=== PATIENT | male | born 1975 ===

== ENCOUNTER 2019-04-28 14:17 | Emergency (ER) | payer OTHER ==
[2019-04-28 15:49] VITALS: BP 122/83
--- NOTE | 2019-04-28 18:34 | UC ---
Skin Complaint HPI - HPI Summary HPI Summary: 4 DAYS AGO PATIENT WAS WORKING IN HIS [place]AR[place] WHEN A SINGLE PANE WINDOW THAT WAS LEANING AGAINST THE WALL FELL AND LACERATED HIS RIGHT CALF. DID NOT SEEK MEDICAL ATTENTION AT THAT TIME AND NOW HE THINKS IT IS INFECTED. HE HAS REDNESS , SWELLING AND INCREASED PAIN. NO FEVER. HE IS A DIABETIC. STATES HE IS UP-TO -DATE TETANUS IN THE LAST 5 YEARS. - History of Current Complaint Chief Complaint: UCLowerExtremity Time Seen by Provider: 04/28/19 16:09 Stated Complaint: LEG INJURY Hx Obtained From: Patient Onset/Duration: Sudden Onset, Lasting Days, Still Present Timing: Constant Onset Severity: Moderate Current Severity: Moderate Pain Intensity: 4 Pain Scale Used: 0-10 Numeric Character: Swelling, Pain, Redness Aggravating Factor(s): Touch Alleviating Factor(s): Nothing Associated Signs & Symptoms: Positive: Drainage, Tenderness Related History: Trauma - Allergy/Home Medications Allergies/Adverse Reactions: Allergies Allergy/AdvReac Type Severity Reaction Status Date / Time No Known Allergies Allergy Verified 04/28/19 15:49 Home Medications: Home Medications Glimepiride (NF) 2 mg PO DAILY 04/28/19 [History Confirmed 04/28/19] metFORMIN* [Glucophage 500 MG TAB *] 500 mg PO BID 04/28/19 [History Confirmed 04/28/19] PMH/Surg Hx/FS Hx/Imm Hx Endocrine History: Diabetes Respiratory History: Asthma - Surgical History Surgical History: Yes Surgery Procedure, Year, and Place: hydrocele; R testicle; L knee; L wrist; scheduled for R ear surgery - Family History Known Family History: Positive: Non-Contributory - Social History Alcohol Use: Daily Alcohol Amount: 2 beers a day Substance Use Type: None Smoking Status (MU): Heavy Every Day Tobacco Smoker Review of Systems All Other Systems Reviewed And Are Negative: Yes Constitutional: Positive: Negative Skin: Positive: Other - INFECTED ULCER RIGHT CALF Respiratory: Positive: Negative Cardiovascular: Positive: Negative Gastrointestinal: Positive: Negative Musculoskeletal: Positive: Edema Physical Exam Triage Information Reviewed: Yes Appearance: Well-Appearing, No Pain Distress, Well-Nourished Vital Signs: Initial Vital Signs Temp 97.5 F 04/28/19 15:43 Pulse 80 04/28/19 15:43 Resp 14 04/28/19 15:43 BP 122/83 04/28/19 15:43 Pulse Ox 99 04/28/19 15:43 Vital Signs Reviewed: Yes Eyes: Positive: Conjunctiva Clear ENT: Positive: Hearing grossly normal Neck: Positive: Supple Respiratory: Positive: No respiratory distress, No accessory muscle use Cardiovascular: Positive: Pulses Normal Abdomen Description: Positive: Soft Musculoskeletal: Positive: ROM Intact, Edema @ - RIGHT LOWER LEG Neurological: Positive: Alert Psychological: Positive: Age Appropriate Behavior Skin: Positive: Other - 3CM X 1CM OPEN ULCERATION WITH SOME NECROTIC TISSUE AND 12CM SURROUNDING ERYTHEMA. TENDER Course/Dx - Course Course Of Treatment: WOUND CLEANSED AND DRESSED BY RN. WILL COVER INFECTION WITH BACTRIM. IBUPROFEN NEEDED FOR DISCOMFORT AND HYDROCODONE FOR BREAKTHROUGH. PATIENT WILL LIKELY NEED WOUND CARE. CONTACT INFORMATION PROVIDED. ADVISED TO CALL TOMORROW FIRST THING AND HAVE WOUND RECHECKED IN 2 OR 3 DAYS. - Diagnoses Provider Diagnosis: Infection, wound status post trauma Discharge - Sign-Out/Discharge Documenting (check all that apply): Patient Departure All imaging exams completed and their final reports reviewed: No Studies - Discharge Plan Condition: Stable Disposition: HOME Prescriptions: HYDROcodone/ACETAMIN 5-325 MG* [[place] 5-325 TAB*] 1 tab PO Q6H PRN #20 tab MDD 4 PRN Reason: Pain Sulfamethox/Trimethoprim DS* [Bactrim DS 800/160 TAB*] 1 tab PO BID #20 tab Patient Education Materials: Cellulitis (ED), Acute Wound Care (ED) Referrals: Renata Saini PA [Primary Care Provider] - 2 Days Additional Instructions: YOUR WOUND HAS BECOME INFECTED. WARM/HOT COMPRESSES/SOAKS AT LEAST 4 TIMES DAILY CHANGE BANDAGE DAILY AND NEEDED IF BECOMES SOILED OR WET RECOMMEND WOUND RECHECK IN 2-3 DAYS WITH WOUND CARE OR YOUR PCP. GO TO THE ER WITHOUT FAIL IF YOU DEVELOP CONTINUED SPREADING REDNESS OF THE SKIN , PURULENT DRAINAGE, FEVER, INCREASED PAIN OR ANY OTHER CONCERNING SYMPTOMS. CALL FIRST THING IN THE MORNING TOMORROW: [facility] [phone] - Billing Disposition and Condition Condition: STABLE Disposition: Home
[2019-04-28] MEDS ORDERED: Sulfamethox/Trimethoprim DS 800/160* TAB PO ONE (18:52)
[2019-04-28] MEDS ORDERED: HYDROcodone/ACETAMIN 5-325 MG* 1 TAB PO ONE (18:52)
== END 2019-04-28 17:38 | disposition home or self-care (01) ==
LOC: UCEAST 14:17
DX: S81.811A Laceration without foreign body, right lower leg, initial encounter (principal); W25.XXXA Contact with sharp glass, initial encounter; Y92.015 Private garage of single-family (private) house as the place of occurrence of the external cause; B99.9 Unspecified infectious disease; F17.210 Nicotine dependence, cigarettes, uncomplicated
CPT/HCPCS: 99202; A9270-GY; G0463

== ENCOUNTER 2019-11-19 14:50 | Emergency (ER) | payer OTHER ==
[2019-11-19 15:07] VITALS: BP 121/90
--- NOTE | 2019-11-19 15:37 | UC ---
Dental HPI - HPI Summary HPI Summary: 44 yo male presents with dental pain. He tells me that he has a broken left lower tooth for many years. Over the last 3-4 days has had increased pain and swelling to the area. He has been taking ibuprofen with little relief. He was scheduled to see his dentist today, but dentist cancelled due to illness and rescheduled for 11/26/19. Pt has been eating, drinking, and tolerating po well. Denies fever, chills - History of Current Complaint Chief Complaint: UCDentalProblem Stated Complaint: DENTAL Time Seen by Provider: 11/19/19 15:37 Hx Obtained From: Patient Onset/Duration: Gradual Onset Severity: Moderate Pain Intensity: 6 Pain Scale Used: 0-10 Numeric - Allergies/Home Medications Allergies/Adverse Reactions: Allergies Allergy/AdvReac Type Severity Reaction Status Date / Time No Known Allergies Allergy Verified 11/19/19 14:59 Home Medications: Home Medications Ambesol Topical* PRN 11/19/19 [History] Ibuprofen TAB* [Advil TAB*] 800 mg PO Q6H PRN 11/19/19 [History Confirmed ] PMH/Surg Hx/FS Hx/Imm Hx Endocrine History: Diabetes - Surgical History Surgical History: Yes Surgery Procedure, Year, and Place: hydrocele; R testicle; L knee; L wrist; right ear surgery - Family History Known Family History: Positive: Non-Contributory - Social History Lives: With Family Alcohol Use: Occasionally Alcohol Amount: 2 beers a day Substance Use Type: None Smoking Status (MU): Current Every Day Smoker Type: Cigarettes Amount Used/How Often: 1 ppd Review of Systems All Other Systems Reviewed And Are Negative: No Constitutional: Positive: Negative Skin: Positive: Negative Eyes: Positive: Negative ENT: Positive: Dental Pain Respiratory: Positive: Negative Cardiovascular: Positive: Negative Neurovascular: Positive: Negative Neurological: Positive: Negative Psychological: Positive: Negative Physical Exam - Summary Physical Exam Summary: GENERAL: NAD. WDWN. No pain distress. SKIN: No rashes, sores, lesions, or open wounds. HEENT: Head: AT/NC Eyes: EOM intact. Conjunctiva clear without inflammation or discharge. Ears: Hearing grossly normal. TMs intact, no bulging, erythema, or edema. Nose: Nasal mucosa pink and moist. NTTP maxillary and frontal sinus. Throat: Posterior oropharynx without exudates, erythema, or tonsillar enlargement. Uvula midline. NECK: Supple. Nontender. No lymphadenopathy. NEURO: Alert. PSYCH: Age appropriate behavior. Triage Information Reviewed: Yes Vital Signs: Initial Vital Signs Temp 97.2 F 11/19/19 14:55 Pulse 83 11/19/19 14:55 Resp 18 11/19/19 14:55 BP 121/90 11/19/19 14:55 Pulse Ox 100 11/19/19 14:55 Vital Signs Reviewed: Yes Dental: Positive: Percussion Tenderness @ - Tooth #17, Gross Decay/Caries @ - throughout, Dental Fracture @ - Tooth #17, Abscess @ - Tooth #17. Negative: Cellulitis @, Cervical Lymphadenopathy, Bleeding Dental Complaint Course/Dx - Course Course Of Treatment: Tooth #17 abscess istop: Reference #: [id number] - Differential Dx/Diagnosis Provider Diagnosis: Tooth abscess Discharge ED - Sign-Out/Discharge Documenting (check all that apply): Patient Departure All imaging exams completed and their final reports reviewed: No Studies - Discharge Plan Condition: Stable Disposition: HOME Prescriptions: clindamycin HCL [Clindamycin HCl] 300 mg PO TID #21 capsule HYDROcodone/ACETAMIN 5-325 MG* [[place] 5-325 TAB*] 1 tab PO Q8H PRN #6 tab MDD 3 PRN Reason: Pain - Severe Patient Education Materials: Dental Abscess (ED) Referrals: No Primary Care Phys,NOPCP [Primary Care Provider] - Nick Law MD [Doctor of Dental Medicine] - As Soon As Possible Additional Instructions: If you develop a fever, shortness of breath, chest pain, new or worsening symptoms - please call your PCP or go to the ED immediately. Please keep your appointment with your dentist - Billing Disposition and Condition Condition: STABLE Disposition: Home
== END 2019-11-19 16:11 | disposition home or self-care (01) ==
LOC: UCEAST 14:50
DX: K04.7 Periapical abscess without sinus (principal); F17.210 Nicotine dependence, cigarettes, uncomplicated; E11.9 Type 2 diabetes mellitus without complications
CPT/HCPCS: 99212; G0463

== ENCOUNTER 2023-11-26 01:55 | Inpatient (IN) ==
[2023-11-26] MEDS ORDERED: VERAPAMIL 2.5 MG/ML 2 ML VIAL ** 5 mg/2 ml ONE (02:12)
[2023-11-26] MEDS ORDERED: fentaNYL 100 mcg/2 ml 50 MCG/ML VIAL ONE (02:12)
[2023-11-26] MEDS ORDERED: Midazolam 5 mg/5 ml VIAL 1 mg/ml 5 ml VIAL (5 mg) ONE (02:12)
[2023-11-26] MEDS ORDERED: Heparin 2 UNITS/ML 1000 mls 1,000 ML IV ONE (02:13)
[2023-11-26] MEDS ORDERED: Heparin 1,000 UNIT/ML 10 ml (10,000 UNITS) CATHLAB/DIALYSIS ONE (02:13)
[2023-11-26] MEDS ORDERED: Iohexol 350 (CONTRAST) 200 ML MDV IV ONE (02:13)
[2023-11-26] MEDS ORDERED: nitroGLYCERIN DRIP 25,000 MCG/250 ML BTL ONE (02:13)
[2023-11-26] MEDS ORDERED: Lidocaine 1% MPF 5 ML VIAL ONE (02:14)
[2023-11-26] MEDS: Heparin - STEMI 5,000 UNITS/ML 1 ml VIAL IV ONE (02:15)
[2023-11-26] MEDS: nitroGLYCERIN DRIP 25,000 MCG/250 ML BTL IV SCH ×2 (02:15→05:34)
[2023-11-26 02:16] LABS: ABS Basophils 0.2 10^3/uL (0.0-0.1); ABS Eosinophils 0.1 10^3/uL (0.0-0.5); ABS Lymphocytes 2.1 10^3/uL (1.0-4.8); ABS Monocytes 0.7 10^3/uL (0.0-1.1); ABS Neutrophils 9.5 10^3/uL (1.5-7.6); ABS Nucleated RBC 0.01 10^3/ul; Eosinophil % 1.1 %; Hematocrit 46.3 % (38-53); Hemoglobin 15.5 g/dL (13.2-16.3); Lymphocyte % 16.4 %; Mean Corpuscular Hgb Conc 33.5 g/dL (31-36); Mean Corpuscular Volume 89.8 fL (80-97); Mean Platelet Volume 8.7 fL (7.5-11.2); Nucleated Red Blood Cells % 0.1 %/100WBC (0.0-0.8); Platelet Count 288 10^3/uL (150-450); Red Blood Count 5.16 10^6/uL (4.06-5.63); Red Cell Distribution Width 14.5 % (12-17); White Blood Count 12.5 10^3/uL (3.6-10.2)
[2023-11-26] MEDS: Morphine 4 MG/ML VIAL (1 ml) IV ONE (02:24)
[2023-11-26 02:28] LABS: INR 0.89 (0.83-1.13)
[2023-11-26 02:37] LABS: Albumin 4.3 g/dL (3.2-5.2); Albumin/Globulin Ratio 1.3 (1-3); Calcium 9.5 mg/dL (8.6-10.3); Creatinine, Serum 0.95 mg/dL (0.67-1.17); Globulin 3.4 g/dL (2-4); Magnesium 1.4 mg/dL (1.9-2.7); Potassium 4.8 mmol/L (3.5-5.0); Total Bilirubin 0.3 mg/dL (0.2-1.0); Total Protein 7.7 g/dL (6.4-8.9); eGFR CKD-EPI 99.3 (>60)
[2023-11-26] MEDS ORDERED: Atropine 0.1 MG/ML 10 ml SYR (1 mg) ONE (02:47)
[2023-11-26] MEDS ORDERED: Bivalirudin 250 MG VIAL ONE (02:48)
[2023-11-26] MEDS ORDERED: Phenylephrine 40 mcg/mL 10mL (400mcg) SYRINGE ONE (03:40)
[2023-11-26] MEDS ORDERED: Adenosine 3 MG/ML 2 ml VIAL (6 mg) ONE ×2 (03:51→03:52)
[2023-11-26] MEDS ORDERED: Dextrose 50% Syringe 50 ml 25 GM/50 ML SYRINGE IV PUSH PRN (05:01)
[2023-11-26] MEDS: Heparin DRIP 25,000 UNITS BAG 25,000 UNITS/250 ML BAG IV SCH (06:00)
[2023-11-26] MEDS: Morphine 2 MG/ML SYRINGE IV PRN (06:19)
[2023-11-26] MEDS: NS 0.9% 500 ml BAG 500 ML IV ONE (06:20)
[2023-11-26] MEDS: Magnesium Sulfate 2 gm BAG 2 GM/50 ML BAG IVPB ONE ×2 (06:20→09:33)
[2023-11-26] MEDS: NS 0.9% 1000 ml BAG 1,000 ML IV SCH ×2 (06:40→07:38)
[2023-11-26 06:56] LABS: Potassium 4.4 mmol/L (3.5-5.0)
[2023-11-26 06:57] LABS: Calcium 9.2 mg/dL (8.6-10.3); Creatinine, Serum 0.69 mg/dL (0.67-1.17); Magnesium 1.6 mg/dL (1.9-2.7); eGFR CKD-EPI 114.9 (>60)
[2023-11-26 07:26] LABS: HIV 4th Generation Nonreactive (Nonreactive)
[2023-11-26] MEDS: Magnesium Sulfate 2 gm BAG 2 GM/50 ML BAG ONE (10:33)
[2023-11-26 11:14] LABS: ABS Basophils 0.2 10^3/uL (0.0-0.1); ABS Eosinophils 0.2 10^3/uL (0.0-0.5); ABS Lymphocytes 3.7 10^3/uL (1.0-4.8); ABS Monocytes 0.9 10^3/uL (0.0-1.1); ABS Neutrophils 9.9 10^3/uL (1.5-7.6); ABS Nucleated RBC 0.03 10^3/ul; Eosinophil % 1.5 %; Hematocrit 39.8 % (38-53); Hemoglobin 13.5 g/dL (13.2-16.3); Lymphocyte % 24.7 %; Mean Corpuscular Hemoglobin 30.2 pg (27-33); Mean Corpuscular Volume 88.9 fL (80-97); Mean Platelet Volume 8.6 fL (7.5-11.2); Nucleated Red Blood Cells % 0.2 %/100WBC (0.0-0.8); Platelet Count 276 10^3/uL (150-450); Red Blood Count 4.48 10^6/uL (4.06-5.63); Red Cell Distribution Width 14.6 % (12-17); White Blood Count 14.8 10^3/uL (3.6-10.2)
[2023-11-26 11:31] LABS: Creatinine, Serum 0.73 mg/dL (0.67-1.17); eGFR CKD-EPI 112.9 (>60)
[2023-11-26] MEDS: Heparin 5000 UNITS/ML 1 mL VIAL IV SCH (11:32)
[2023-11-26] MEDS: Enoxaparin 40 MG/0.4 ML SYR SUBCUT SCH (19:54)
[2023-11-26] MEDS: Insulin GLARGINE 100 un/ml 10 ml VIAL SUBCUT SCH (19:54)
[2023-11-27 00:49] LABS: High Sensitivity Troponin 3 Hr >24000 pg/mL (<20)
[2023-11-27 05:09] LABS: ABS Basophils 0.1 10^3/uL (0.0-0.1); ABS Eosinophils 0.2 10^3/uL (0.0-0.5); ABS Lymphocytes 3.5 10^3/uL (1.0-4.8); ABS Nucleated RBC 0.01 10^3/ul; Eosinophil % 1.1 %; Hematocrit 46.5 % (38-53); Hemoglobin 15.5 g/dL (13.2-16.3); Lymphocyte % 23.9 %; Mean Corpuscular Hemoglobin 29.5 pg (27-33); Mean Corpuscular Hgb Conc 33.2 g/dL (31-36); Mean Corpuscular Volume 88.9 fL (80-97); Mean Platelet Volume 8.8 fL (7.5-11.2); Platelet Count 267 10^3/uL (150-450); Red Blood Count 5.23 10^6/uL (4.06-5.63); Red Cell Distribution Width 14.7 % (12-17); White Blood Count 14.8 10^3/uL (3.6-10.2)
[2023-11-27 05:25] LABS: Albumin 3.8 g/dL (3.2-5.2); Albumin/Globulin Ratio 1.2 (1-3); Calcium 8.9 mg/dL (8.6-10.3); Creatinine, Serum 0.87 mg/dL (0.67-1.17); Globulin 3.2 g/dL (2-4); HDL Cholesterol 52.5 mg/dL; Potassium 4.3 mmol/L (3.5-5.0); Total Bilirubin 0.6 mg/dL (0.2-1.0); eGFR CKD-EPI 107.1 (>60)
[2023-11-27 11:09] LABS: CRP High Sensitivity 32.43 mg/L (<2.00); Magnesium 1.8 mg/dL (1.9-2.7)
[2023-11-27] MEDS: Empagliflozin 25 MG TAB PO SCH (12:20)
[2023-11-27] MEDS: Magnesium Sulfate 2 gm BAG 2 GM/50 ML BAG IVPB ONE (12:21)
[2023-11-27 13:15] LABS: Erythrocyte Sed Rate 12 mm/Hr (0-14)
[2023-11-27 14:22] LABS: High Sensitivity Troponin 1 Hr > 24000 pg/mL (<20)
[2023-11-27] MEDS: Nicotine PATCH 21 MG/24 HR PATCH TRANSDERM SCH (16:34)
[2023-11-27] MEDS: Insulin GLARGINE 100 un/ml 10 ml VIAL SUBCUT SCH (23:05)
[2023-11-28 05:25] LABS: Hematocrit 45.4 % (38-53); Hemoglobin 15.5 g/dL (13.2-16.3); Mean Corpuscular Hemoglobin 30.3 pg (27-33); Mean Corpuscular Hgb Conc 34.1 g/dL (31-36); Mean Corpuscular Volume 88.8 fL (80-97); Mean Platelet Volume 8.6 fL (7.5-11.2); Platelet Count 288 10^3/uL (150-450); Red Blood Count 5.12 10^6/uL (4.06-5.63); Red Cell Distribution Width 14.9 % (12-17)
[2023-11-28 05:44] LABS: Creatinine, Serum 0.94 mg/dL (0.67-1.17); Magnesium 1.8 mg/dL (1.9-2.7); Potassium 4.2 mmol/L (3.5-5.0); eGFR CKD-EPI 100.6 (>60)
[2023-11-28] MEDS: Magnesium Sulfate 2 gm BAG 2 GM/50 ML BAG IVPB ONE (06:42)
[2023-11-28] MEDS ORDERED: Nicotine PATCH 21 MG/24 HR PATCH TRANSDERM SCH (08:00)
[2023-11-28 10:59] LABS: ABS Basophils 0.1 10^3/uL (0.0-0.1); ABS Eosinophils 0.2 10^3/uL (0.0-0.5); ABS Lymphocytes 3.6 10^3/uL (1.0-4.8); ABS Neutrophils 8.5 10^3/uL (1.5-7.6); Eosinophil % 1.1 %; Hematocrit 46.6 % (38-53); Hemoglobin 15.5 g/dL (13.2-16.3); Lymphocyte % 26.7 %; Mean Corpuscular Hemoglobin 29.4 pg (27-33); Mean Corpuscular Hgb Conc 33.2 g/dL (31-36); Mean Corpuscular Volume 88.8 fL (80-97); Mean Platelet Volume 8.9 fL (7.5-11.2); Platelet Count 289 10^3/uL (150-450); Red Blood Count 5.25 10^6/uL (4.06-5.63); Red Cell Distribution Width 14.9 % (12-17); White Blood Count 13.3 10^3/uL (3.6-10.2)
[2023-11-28 11:14] LABS: INR 0.94 (0.83-1.13)
[2023-11-28 11:19] LABS: Creatinine, Serum 0.89 mg/dL (0.67-1.17); Potassium 4.3 mmol/L (3.5-5.0); eGFR CKD-EPI 106.4 (>60)
[2023-11-28] MEDS ORDERED: Naloxone 0.4 mg VIAL 0.4 mg/ml 1 ml VIAL IV PUSH PRN (13:00)
[2023-11-28] MEDS: fentaNYL 100 mcg/2 ml 50 MCG/ML VIAL IV SLOW PU ONE (13:00)
[2023-11-28] MEDS ORDERED: Flumazenil 0.5 mg/5 ml 0.1 MG/ML 5 ml VIAL IV PRN (13:00)
[2023-11-28] MEDS ORDERED: Heparin 1,000 UNIT/ML 10 ml (10,000 UNITS) CATHLAB/DIALYSIS ONE (14:52)
[2023-11-28] MEDS ORDERED: nitroGLYCERIN DRIP 25,000 MCG/250 ML BTL ONE (14:53)
[2023-11-28] MEDS ORDERED: Iohexol 350 (CONTRAST) 200 ML MDV IV ONE (14:53)
[2023-11-28] MEDS ORDERED: Heparin 2 UNITS/ML 1000 mls 3,000 ML IV ONE (14:53)
[2023-11-28] MEDS ORDERED: Lidocaine 1% MPF 5 ML VIAL ONE (14:53)
[2023-11-28] MEDS ORDERED: niCARdipine 0.1MG/ML IVPREMIX 20 MG/200 ML BAG IV ONE (14:53)
[2023-11-28] MEDS ORDERED: Midazolam 5 mg/5 ml VIAL 1 mg/ml 5 ml VIAL (5 mg) ONE (15:02)
[2023-11-28] MEDS ORDERED: fentaNYL 100 mcg/2 ml 50 MCG/ML VIAL ONE (15:02)
[2023-11-28] MEDS ORDERED: Norepinephrine 4 MG/250mL D5W 4,000 MCG/250 ML BAG IV ONE (15:23)
[2023-11-28] MEDS ORDERED: oxyCODONE/Acetamin 5/325 mg TAB PO PRN (16:04)
[2023-11-28] MEDS: Midazolam 10 mg/10 ml VIAL 1 mg/ml 10 ml VIAL (10 mg) IV SLOW PU ONE (16:31)
[2023-11-29 06:19] LABS: ABS Basophils 0.1 10^3/uL (0.0-0.1); ABS Eosinophils 0.2 10^3/uL (0.0-0.5); ABS Lymphocytes 3.2 10^3/uL (1.0-4.8); ABS Monocytes 0.9 10^3/uL (0.0-1.1); ABS Neutrophils 7.7 10^3/uL (1.5-7.6); ABS Nucleated RBC 0.01 10^3/ul; Eosinophil % 1.7 %; Hematocrit 44.1 % (38-53); Lymphocyte % 26.6 %; Mean Corpuscular Volume 88.4 fL (80-97); Mean Platelet Volume 8.6 fL (7.5-11.2); Nucleated Red Blood Cells % 0.1 %/100WBC (0.0-0.8); Platelet Count 283 10^3/uL (150-450); Red Blood Count 4.99 10^6/uL (4.06-5.63); Red Cell Distribution Width 14.5 % (12-17); White Blood Count 12.1 10^3/uL (3.6-10.2)
[2023-11-29 06:40] LABS: Creatinine, Serum 0.88 mg/dL (0.67-1.17); Potassium 4.8 mmol/L (3.5-5.0); eGFR CKD-EPI 106.7 (>60)
[2023-11-29 16:01] VITALS: BP 106/62
== END 2023-11-29 15:17 | disposition home or self-care (01) | DRG 174 ==
LOC: ED 01:55 → CHICATH 04:13 → ICU 04:14 → MEDTELE 11-28 20:53
PROVIDERS: ATTEND Hospitalist